=== PATIENT | male | born 1975 | race Caucasian/White ===

== ENCOUNTER 2021-09-15 12:21 | Emergency (ER) | payer OTHER ==
[~2021-09-15 12:21] MED LIST: RISP2TAB45 PO
== END 2021-09-15 13:52 | disposition left against medical advice (07) ==
LOC: EMS 12:27
DX: Z00.00 Encounter for general adult medical examination without abnormal findings (principal); Z53.21 Procedure and treatment not carried out due to patient leaving prior to being seen by health care provider